=== PATIENT | female | born 2000 | race Caucasian/White ===

== ENCOUNTER 2021-06-08 11:36 | Emergency (ER) | payer SELFPAY ==
[~2021-06-08] VITALS: Ht 162.6 cm; Wt 59.6 kg
[2021-06-08 11:39] VITALS: BP 130/107
--- NOTE | 2021-06-08 11:43 | NUR ---
PT STATES "I HAVE TO LEAVE, MY INSURANCE IS FOR [place]"
== END 2021-06-08 11:45 ==
LOC: ED 11:39
DX: R11.10 Vomiting, unspecified (principal); Z53.21 Procedure and treatment not carried out due to patient leaving prior to being seen by health care provider